=== PATIENT | female | born 1990 | race Two or more races ===

== ENCOUNTER 2020-09-07 18:56 | Emergency (ER) | payer SELFPAY ==
[~2020-09-07] VITALS: Ht 149.9 cm; Wt 95.4 kg
[2020-09-07] MEDS ORDERED: CETIRIZINE HCL 10 MG TABLET PO ONE (20:25)
[2020-09-07] MEDS ORDERED: FLUT9.9S NS (20:26)
[2020-09-07] MEDS ORDERED: CETI10TA74 PO (20:26)
--- NOTE | 2020-09-07 20:26 | PHYS DOC ---
Past History Past Medical History: Asthma Additional Past Medical Histor: pre-diabetes Past Surgical History: No Surgical History Alcohol Use: None Adult General Chief Complaint Chief Complaint: EARACHE/EAR PAIN HPI HPI Patient is a 30-year-old female who presents with URI-like symptoms. Onset was noted first thing this morning. Nothing known makes better or worse. Patient reports classic symptoms of generalized headache, bilateral ear fullness, sinus pressure, rhinorrhea, postnasal drip and nonproductive cough. Patient denies being around any known sick contacts, no recent travel, no COVID-19 exposure, no fever. She is not immunocompromised Review of Systems Review of Systems Fourteen body systems of review of systems have been reviewed. See HPI for pertinent positives and negative responses, other duval all other systems are negative, non-pertinent or non-contributory Allergies Allergies Allergies Coded Allergies Type Severity Reaction Last Updated Verified Penicillins Allergy Severe anaphylactic 09/07/20 Yes ciprofloxacin Allergy Intermediate myalgias, liver labs elevated 09/07/20 Yes Physical Exam Physical Exam Constitutional: Well developed, well nourished, no acute distress, non-toxic appearance. HENT: Normocephalic, atraumatic, bilateral external ears normal, oropharynx moist, no oral exudates, moderate postnasal drip present, moderately engorged nasal turbinates with clear rhinorrhea present, external nose normal. Eyes: PERRLA, EOMI, conjunctiva normal, no discharge. Neck: Normal range of motion, no tenderness, supple, no stridor. Cardiovascular: Heart rate regular, sinus rhythm, no murmurs rubs or gallops Lungs & Thorax: Bilateral breath sounds clear to auscultation Abdomen: Bowel sounds normal, soft, no tenderness, no masses, no pulsatile masses. Nonsurgical abdomen, no peritoneal signs Skin: Warm, dry, no erythema, no rash. Back: No tenderness, no CVA tenderness. Extremities: No tenderness, no cyanosis, no clubbing, ROM intact, no edema. Neurologic: Alert and oriented X 3, grossly normal motor & sensory function, no focal deficits noted. Psychologic: Affect normal, judgement normal, mood normal. Current Patient Data Vital Signs Vital Signs Date Time Temp Pulse Resp B/P (MAP) Pulse Ox O2 Delivery O2 Flow Rate FiO2 09/07/20 19:35 97.8 98 18 130/75 (93) 98 Room Air EKG EKG [] Radiology/Procedures Radiology/Procedures [] Heart Score Risk Factors: Risk Factors: DM, Current or recent (<one month) smoker, HTN, HLP, family history of CAD, obesity. Risk Scores: Risk Factors: DM, Current or recent (<one month) smoker, HTN, HLP, family history of CAD, obesity. Course & Med Decision Making Course & Med Decision Making Nontoxic ambulatory patient seen on arrival ABCs nonconcerning Comprehensive history and physical exam obtained, no obvious emergent and/or surgical findings Discussed most likely diagnosis of viral syndrome, I offered patient COVID-19 swab but she refused I educated patient on likely self-limiting disease course and supportive care measures to practice Patient has PCP in local area, she reports she will be able to follow-up within upcoming 3 to 10 days for reevaluation, I feel this is appropriate Strict return precautions were discussed with good understanding by patient, all questions and concerns addressed prior to ER departure in stable condition Dragon Disclaimer Dragon Disclaimer This electronic medical record was generated, in whole or in part, using a voice recognition dictation system. Departure Departure: Impression: Primary Impression: Viral syndrome Disposition: 01 DC HOME SELF CARE/HOMELESS Condition: STABLE Referrals: JUSTUS GUERRERO MD (PCP) Patient Instructions: Viral Syndrome Additional Instructions: As discussed prior to ER departure, please call your primary care physician first thing in the morning to schedule outpatient follow-up in upcoming 1 to 10 days time You are educated on concerning signs or symptoms that should prompt immediate medical attention if they occur prior to seeing your outpatient physician. It was a pleasure to take care of you and I wish you a speedy recovery! Scripts Fluticasone Propionate (Flonase Allergy Relief) 9.9 Ml [place].susp 2 SPRAYS NS DAILY for rhinitis for 30 Days, #1 BOTTLE Prov: GLORIA ARMAS DO 09/07/20 Cetirizine Hcl (ZYRTEC) 10 Mg Tablet 1 TAB PO DAILY for rhinitis, #30 TAB 2 Refills Prov: GLORIA ARMAS DO 09/07/20 GLORIA ARMAS DO Sep 07, 2020 20:26
[2020-09-07 20:35] VITALS: BP 107/68
== END 2020-09-07 20:38 | disposition home or self-care (01) ==
LOC: EDBD 18:56 → ER 18:56
DX: B34.9 Viral infection, unspecified (principal); J45.909 Unspecified asthma, uncomplicated; Z88.0 Allergy status to penicillin; Z88.1 Allergy status to other antibiotic agents
CPT/HCPCS: 99283

== ENCOUNTER 2020-11-18 16:50 | Emergency (ER) | payer SELFPAY ==
[~2020-11-18] VITALS: Ht 149.9 cm; Wt 94.5 kg
[~2020-11-18 16:50] MED LIST: CETI10TA74 PO; FLUT9.9S NS
[2020-11-18] MEDS ORDERED: IPRATRPIUM/ALBUTEROL 0.5/2.5MG 3 ML NEBU. NEB ONE ×2 (17:15)
[2020-11-18] MEDS ORDERED: IV NORMAL SALINE 1,000ML 1,000 ML IV ONE (17:15)
[2020-11-18] MEDS ORDERED: methylPREDNISolone SOD SUCC PF 125 MG/2 ML VIAL. IV ONE (17:15)
[2020-11-18] MEDS ORDERED: ALBUTEROL SULFATE 2.5 MG/3 ML NEBU. CONT NEB ONE (17:30)
--- NOTE | 2020-11-18 17:31 | RAD ---
EXAM: CHEST 1 VIEW History: Cough COMPARISON: None available. TECHNIQUE: Single portable radiograph of the chest FINDINGS: The cardiac silhouette is unremarkable. The lungs are clear bilaterally. The costophrenic sulci are clear and well demarcated. IMPRESSION: No radiographic evidence of an acute cardiopulmonary process. Electronically signed by: Dimitrios Guzman MD (11/18/2020 5:28 PM) [id number]
--- NOTE | 2020-11-18 17:33 | PHYS DOC ---
Past History Past Medical History: Asthma (ANGELY NAGY MD) Past Surgical History: No Surgical History (ANGELY NAGY MD) Alcohol Use: None (ANGELY NAGY MD) General Adult EDM: Chief Complaint: ASTHMA HPI: HPI: Patient is a 30-year-old female with history of asthma coming in for asthma exacerbation. States symptoms started about a week ago that she thinks were triggered by the cold and gradually getting worse. Is having uncontrollable cough. Has been using her albuterol inhaler every 4 hours and Symbicort twice a day. Patient says she has not had a fever. The cough is nonproductive. Patient had otherwise been well not had any fevers, vomiting, diarrhea, headaches. (ANGELY NAGY MD) Review of Systems: Review of Systems: All other systems within normal limits except for as noted in the HPI (ANGELY NAGY MD) Current Medications: Current Meds: Current Medications Medications (Trade) Dose Ordered Sig/Ajne Start Time Stop Time Status Last Admin Dose Admin Albuterol Sulfate (Ventolin) 10 mg 1X ONCE 11/18/20 17:30 11/18/20 17:31 11/18/20 17:28 10 MG Albuterol/ Ipratropium (Duoneb) 3 ml 1X ONCE 11/18/20 17:15 11/18/20 17:16 DC 11/18/20 17:28 3 ML Methylprednisolone Sodium Succinate (SOLU-Medrol 125MG VIAL) 125 mg 1X ONCE 11/18/20 17:15 11/18/20 17:16 DC Sodium Chloride 1,000 ml @ 1,000 mls/hr 1X ONCE 11/18/20 17:15 11/18/20 18:14 (ANGELY NAGY MD) Allergies: Allergies: Allergies Coded Allergies Type Severity Reaction Last Updated Verified Penicillins Allergy Unknown 11/18/20 Yes ciprofloxacin Allergy Unknown 11/18/20 Yes milk Allergy Unknown 11/18/20 Yes nut - unspecified Allergy Unknown 11/18/20 Yes (ANGELY NAGY MD) Physical Exam: PE: Constitutional: Well developed, well nourished, no acute distress, non-toxic appearance. [] HENT: Normocephalic, atraumatic, bilateral external ears normal, nose normal. [] Eyes: PERRLA, conjunctiva normal, no discharge. [] Neck: No rigidity, supple, no stridor. [] Cardiovascular: Regular rhythm, tachycardic, brisk cap refill [] Lungs & Thorax: Non labored symmetric respirations, tachypneic with diminished breath sounds bilateral, no wheezes [] Abdomen: Soft, nondistended. Skin: Warm, dry, no erythema, no rash. [] Back: No tenderness, no CVA tenderness. [] Extremities: No deformities, range of motion grossly intact, no lower extremity edema [] Neurologic: Alert and oriented X 3, no focal deficits noted. [] Psychologic: Affect normal, judgement normal, mood normal. [] (ANGELY NAGY MD) Current Patient Data: Vital Signs: Vital Signs Date Time Temp Pulse Resp B/P (MAP) Pulse Ox O2 Delivery O2 Flow Rate FiO2 11/18/20 17:14 99.8 118 24 124/84 (97) 98 Room Air (ANGELY NAGY MD) EKG: EKG: [] (ANGELY NAGY MD) Radiology/Procedures: Radiology/Procedures: EXAM: CHEST 1 VIEW History: Cough COMPARISON: None available. TECHNIQUE: Single portable radiograph of the chest FINDINGS: The cardiac silhouette is unremarkable. The lungs are clear bilaterally. The costophrenic sulci are clear and well demarcated. IMPRESSION: No radiographic evidence of an acute cardiopulmonary process. [] (ANGELY NAGY MD) Heart Score: Risk Factors: Risk Factors: DM, Current or recent (<one month) smoker, HTN, HLP, family history of CAD, obesity. Risk Scores: Score 0 - 3: 2.5% MACE over next 6 weeks - Discharge Home Score 4 - 6: 20.3% MACE over next 6 weeks - Admit for Clinical Observation Score 7 - 10: 72.7% MACE over next 6 weeks - Early Invasive Strategies (ANGELY NAGY MD) Course & Med Decision Making: Course & Med Decision Making No signs of pneumonia, patient getting hour-long nebulizer at time of shift change. Care transition to Dr. De Anda. [] (ANGELY NAGY MD) Course & Med Decision Making I assumed care of patient after comprehensive signout obtained from off going physician, I reviewed entirety of ER work-up so far I reevaluated patient after her hour-long breathing treatment, patient reports feeling "much better, I am ready to go home" I repeated certain aspects of history and physical exam, she is on appropriate maintenance inhaler therapy and has been taking increased frequency of rescue inhaler recently. Has history of exacerbations like this that have been due to cold weather fronts States she has never been intubated in the past, typically responds to therapy administered today in our ER in addition to short-term steroid burst. I offered this to her and she agreed Patient has good access to primary care physician and states she can be seen with an upcoming 5 days which I feel is appropriate. Strict return precautions were discussed with good understanding, all questions and concerns addressed prior to ER departure and improved condition (GLORIA DE ANDA DO) Dragon Disclaimer: Dragon Disclaimer: This electronic medical record was generated, in whole or in part, using a voice recognition dictation system. (ANGELY NAGY MD) Departure Departure: Impression: Primary Impression: Asthma exacerbation Disposition: DC HOME SELF CARE/HOMELESS Condition: IMPROVED Referrals: PCP,NO (PCP) Patient Instructions: Asthma Attacks, Prevention Additional Instructions: You were seen for an asthma exacerbation. Your exacerbation was likely caused by a recent cold front and weather. You should be checking your peak flows daily and taking all of your controller and rescue inhalers as previously prescribed. Any new medications today, please take those as prescribed as well. It may take a few days for the steroids to begin to work, but use albuterol as needed for the next few days to help with symptoms. As discussed, I would call your primary care physician next business day to schedule outpatient follow-up. Given your symptoms, I advise you be seen with an upcoming 1-5 days for repeat evaluation and discussion about need for further maintenance inhaler therapy. Return to the ED if you develop worsening cough, shortness of breath, fever > 101, chest pain, or any other new or concerning symptoms. You need to follow up with your primary care doctor as soon as possible as a severe asthma exacerbation can be fatal. It was a pleasure to take care of you and I wish you the best going forward Scripts Prednisone (PREDNISONE) 20 Mg Tablet 40 MG PO DAILY for ASTHMA for 5 Days, #10 TAB Prov: GLORIA DE ANDA DO 11/18/20 ANGLEY NAGY MD Nov 18, 2020 17:33 GLORIA DE ANDA DO Nov 18, 2020 19:03
[2020-11-18] MEDS ORDERED: PRED20TA PO (19:03)
[2020-11-18 19:45] VITALS: BP 135/70
== END 2020-11-18 20:00 | disposition home or self-care (01) ==
LOC: ER 16:50 → MERGE 16:50 → ER 20:00
DX: J45.901 Unspecified asthma with (acute) exacerbation (principal); Z88.0 Allergy status to penicillin; Z88.1 Allergy status to other antibiotic agents; Z91.011 Allergy to milk products; Z91.018 Allergy to other foods
CPT/HCPCS: 71045; 94644; 96361; 96374; 99285; J2930; J7030; J7613; 94640

== ENCOUNTER 2020-11-19 23:17 | Inpatient (IN) | payer SELFPAY ==
[~2020-11-19] VITALS: Ht 149.9 cm; Wt 92.7 kg
[~2020-11-19 23:17] MED LIST changes: +PRED20TA PO
[2020-11-19] MEDS ORDERED: MAGNESIUM SULFATE 2GM 50 ML IV ONE (23:39)
--- NOTE | 2020-11-19 23:40 | PHYS DOC ---
Past History Past Medical History: Asthma Additional Past Medical Histor: pre-diabetes Past Surgical History: No Surgical History Alcohol Use: None Adult General HPI HPI Patient is a 30-year-old female who presents for shortness of breath. Patient was seen and evaluated at our ER yesterday, has known history of asthma with numerous exacerbations requiring hospitalizations, last of which was 3 years ago. She has never been intubated. She was evaluated fully yesterday, improved with ER intervention and had unremarkable chest x-ray. Patient reported significant symptomatic improvement after ER intervention and voiced she wanted to go home with close outpatient follow-up. Nonetheless, patient states that she was able to take her daily maintenance inhaler and prescribed steroid burst but reported worsening symptoms later in the evening. States she has had increased shortness of breath and feelings of bronchospasm likely due to the cold air which exacerbates her condition. Has not checked her temperature at home, no headache, no neck stiffness or rigidity, patient has ongoing dry nonproductive cough, patient reports taking a deep breath and triggers coughing fit, no abdominal pain, increased urination past baseline without any dysuria, no motor or sensory function changes. She has no known COVID-19 contact, no hemoptysis, no prior blood clots, no hormone use, no long distance travel. Review of Systems Review of Systems Fourteen body systems of review of systems have been reviewed. See HPI for pertinent positives and negative responses, other duval all other systems are negative, non-pertinent or non-contributory Current Medications Current Medications Current Medications Medications (Trade) Dose Ordered Sig/Jane Start Time Stop Time Status Last Admin Dose Admin Acetaminophen (Tylenol) 650 mg 1X ONCE 11/20/20 01:00 11/20/20 01:01 DC Albuterol/ Ipratropium (Duoneb) 3 ml STK-MED ONCE 11/19/20 23:47 11/19/20 23:47 DC Magnesium Sulfate 50 ml @ 25 mls/hr 1X ONCE 11/20/20 00:00 11/20/20 01:59 11/20/20 00:07 Methylprednisolone Sodium Succinate (SOLU-Medrol 40MG VIAL) 40 mg 1X ONCE 11/20/20 00:00 11/20/20 00:01 DC 11/20/20 00:07 Sodium Chloride 1,000 ml @ 1,000 mls/hr 1X ONCE 11/20/20 00:00 11/20/20 00:59 DC 11/20/20 00:07 Allergies Allergies Allergies Coded Allergies Type Severity Reaction Last Updated Verified Penicillins Allergy Severe anaphylactic 09/07/20 Yes ciprofloxacin Allergy Intermediate myalgias, liver labs elevated 09/07/20 Yes Physical Exam Physical Exam Constitutional: Well developed, well nourished, ambulatory and saturating well but displaying signs of increased work of breathing and bronchospasm HENT: Normocephalic, atraumatic, bilateral external ears normal, oropharynx dry without postnasal drip, no oral exudates, nose normal. Eyes: PERRLA, EOMI, conjunctiva normal, no discharge. Neck: Normal range of motion, no tenderness, supple, no stridor. Cardiovascular: Heart rate tachycardic, sinus rhythm, no murmurs rubs or gallops Lungs & Thorax: Diminished breath sounds globally without any audible wheezes, rhonchi or rails, patient moving air poorly, respiratory distress present with increased work of breathing and accessory muscle use of neck and abdomen Abdomen: Bowel sounds normal, protuberant and soft, no tenderness, no masses, no pulsatile masses. Nonsurgical abdomen, no peritoneal signs Skin: Warm, dry, no erythema, no rash. Back: No tenderness, no CVA tenderness. Extremities: No tenderness, no cyanosis, no clubbing, ROM intact, no edema. Neurologic: Alert and oriented X 3, grossly normal motor & sensory function, no focal deficits noted. Psychologic: Anxious affect, judgement normal, anxious mood Current Patient Data Vital Signs Vital Signs Date Time Temp Pulse Resp B/P (MAP) Pulse Ox O2 Delivery O2 Flow Rate FiO2 11/19/20 23:55 98 Room Air 11/19/20 23:25 101.8 134 28 115/82 (93) 97 Room Air Lab Results Laboratory Tests Test 11/19/20 23:40 11/19/20 23:45 Influenza Type A (Rapid) Negative Influenza Type B (Rapid) Negative White Blood Count 7.5 x10^3/uL Red Blood Count 4.64 x10^6/uL Hemoglobin 14.2 g/dL Hematocrit 41.6 % Mean Corpuscular Volume 90 fL Mean Corpuscular Hemoglobin 31 pg Mean Corpuscular Hemoglobin Concent 34 g/dL Red Cell Distribution Width 12.8 % Platelet Count 224 x10^3/uL Neutrophils (%) (Auto) 76 % Lymphocytes (%) (Auto) 19 % Monocytes (%) (Auto) 5 % Eosinophils (%) (Auto) 0 % Basophils (%) (Auto) 0 % Neutrophils # (Auto) 5.7 x10^3uL Lymphocytes # (Auto) 1.4 x10^3/uL Monocytes # (Auto) 0.4 x10^3/uL Eosinophils # (Auto) 0.0 x10^3/uL Basophils # (Auto) 0.0 x10^3/uL Sodium Level 136 mmol/L Potassium Level 3.5 mmol/L Chloride Level 101 mmol/L Carbon Dioxide Level 25 mmol/L Anion Gap 10 Blood Urea Nitrogen 14 mg/dL Creatinine 1.0 mg/dL Estimated GFR (Cockcroft-Gault) 65.1 BUN/Creatinine Ratio 14 Glucose Level 98 mg/dL Lactic Acid Level 2.2 mmol/L Calcium Level 8.7 mg/dL Total Bilirubin 0.2 mg/dL Aspartate Amino Transf (AST/SGOT) 22 U/L Alanine Aminotransferase (ALT/SGPT) 33 U/L Alkaline Phosphatase 112 U/L Total Protein 8.0 g/dL Albumin 3.9 g/dL Albumin/Globulin Ratio 1.0 Current Medications Medications (Trade) Dose Ordered Sig/Jane Route PRN Reason Start Time Stop Time Status Last Admin Dose Admin Sodium Chloride 1,000 ml @ 1,000 mls/hr 1X ONCE IV 11/20/20 00:00 11/20/20 00:59 DC 11/20/20 00:07 Magnesium Sulfate 50 ml @ As Directed STK-MED ONCE IV 11/19/20 23:39 11/19/20 23:39 DC Albuterol/ Ipratropium (Duoneb) 3 ml 1X ONCE NEB 11/20/20 00:00 11/20/20 00:01 DC 11/20/20 00:00 Methylprednisolone Sodium Succinate (SOLU-Medrol 40MG VIAL) 40 mg 1X ONCE IV 11/20/20 00:00 11/20/20 00:01 DC 11/20/20 00:07 Magnesium Sulfate 50 ml @ 25 mls/hr 1X ONCE IV 11/20/20 00:00 11/20/20 01:59 11/20/20 00:07 Albuterol/ Ipratropium (Duoneb) 3 ml STK-MED ONCE .ROUTE 11/19/20 23:47 11/19/20 23:47 DC Acetaminophen (Tylenol) 650 mg 1X ONCE PO 11/20/20 01:00 11/20/20 01:01 DC EKG EKG EKG ordered and interpreted by myself at 0108 hours as sinus rhythm at 132 bpm, unremarkable intervals except prolonged QTC at 507, no axis deviation, no acute ischemic findings, no STEMI Radiology/Procedures Radiology/Procedures XR CHEST 1V 11/19/2020 11:46 PM INDICATION: Shortness of breath COMPARISON: None available TECHNIQUE: Portable frontal view of the chest is provided. FINDINGS: The cardiomediastinal silhouette is within normal limits. Lungs are clear. There are no significant pleural effusions. There is no pulmonary vascular congestion. No pneumothorax. No suspicious osseous abnormality. IMPRESSION: There is no acute cardiopulmonary process. Electronically signed by: Windy Santillan MD (11/20/2020 12:13 AM) [facility] Heart Score HEART Score for Chest Pain: HEART Score for Chest Pain Response (Comments) Value History Slighlty/Non-Suspicious 0 ECG Normal 0 Age < 45 0 Risk Factors No Risk Factors 0 Total 0 Risk Factors: Risk Factors: DM, Current or recent (<one month) smoker, HTN, HLP, family history of CAD, obesity. Risk Scores: Risk Factors: DM, Current or recent (<one month) smoker, HTN, HLP, family history of CAD, obesity. Course & Med Decision Making Course & Med Decision Making Pertinent Labs and Imaging studies reviewed. (See chart for details) Patient is febrile, tachycardic and tachypneic but otherwise hemodynamically stable. She reports having higher than normal resting heart rate but has had increased heart rate due to every 4 hour albuterol inhaler treatments at home ER intervention shows no obvious emergent and/or surgical pathology; however, patient still symptomatic suffering from bronchospasm and not significantly improved with ER intervention provided. She has failed outpatient treatment of her likely asthma exacerbation/bronchospasm Joint decision was made to admit for continued medical management. Given that she is febrile and short of breath with nonproductive cough, decision was made to swab for Covid despite no known COVID-19 contact. She is currently a PUI I contacted hospitalist and case was reviewed, he agreed for admission under his care at [facility] I updated patient on proposed plan of care who is amenable for admission. All questions and concerns addressed prior to transport to [facility] for admission Of note, it is my opinion that the patient DOES NOT have a likely bacterial etiology for meeting Sepsis Criteria. Defer IV antimicrobials per Sepsis Best Practice Statements given more likely etiology for presentation and findings consistent with sepsis markers. Critical Care Time This patient required critical care. Due to the fact that the patient required a significant amount of one on one physician - patient contact time, ordering and review of studies, arranging urgent treatment with development of a management plan, evaluation of patients response to treatment with frequent reassessments, and discussions with other providers this patient required critical care time in excess of 30 minutes. Critical care time was indicated due to the inherent instability and/or potential for instability in this patient. The critical care time that is allocated to this patient is above and beyond any time spent on any other billable procedures performed on this patient. Dragon Disclaimer Dragon Disclaimer This electronic medical record was generated, in whole or in part, using a voice recognition dictation system. Departure Departure: Impression: Primary Impression: Asthma exacerbation Additional Impressions: Fever Person under investigation for COVID-19 Disposition: 09 ADMITTED INPT THIS HOSP Admitting Physician: Brian Avalos Condition: STABLE Referrals: JUSTUS GUERRERO MD (PCP) Problem Qualifiers GLORIA ARMAS DO Nov 19, 2020 23:39
[2020-11-19] MEDS ORDERED: IPRATRPIUM/ALBUTEROL 0.5/2.5MG 3 ML NEBU. ONE (23:47)
[2020-11-20] MEDS ORDERED: methylPREDNISolone SOD SUCC PF 40 MG/ML VIAL. IV ONE
[2020-11-20] MEDS ORDERED: IPRATRPIUM/ALBUTEROL 0.5/2.5MG 3 ML NEBU. NEB ONE
[2020-11-20] MEDS ORDERED: IV NORMAL SALINE 1,000ML 1,000 ML IV ONE
[2020-11-20] MEDS ORDERED: MAGNESIUM SULFATE 2GM 50 ML IV ONE
--- NOTE | 2020-11-20 00:15 | RAD ---
XR CHEST 1V 11/19/2020 11:46 PM INDICATION: Shortness of breath COMPARISON: None available TECHNIQUE: Portable frontal view of the chest is provided. FINDINGS: The cardiomediastinal silhouette is within normal limits. Lungs are clear. There are no significant pleural effusions. There is no pulmonary vascular congestion. No pneumothora x. No suspicious osseous abnormality. IMPRESSION: There is no acute cardiopulmonary process. Electronically signed by: Windy Santillan MD (11/20/2020 12:13 AM) [facility]
[2020-11-20 00:36] LABS: BASO % 0 % (0-3); EOS % 0 % (0-3); HEMATOCRIT 41.6 % (36.0-47.0); HEMOGLOBIN 14.2 g/dL (12.0-15.5); LYMPH # 1.4 x10^3/uL (1.0-4.8); LYMPH % 19 % (24-48); MEAN CORPUSCULAR HEMOGLOBIN 31 pg (25-35); MEAN CORPUSCULAR HGB CONC 34 g/dL (31-37); MEAN CORPUSCULAR VOLUME 90 fL (79-100); MONO # 0.4 x10^3/uL (0.0-1.1); MONO % 5 % (0-9); NEUT # 5.7 x10^3uL (1.8-7.7); NEUT % 76 % (31-73); PLATELET COUNT 224 x10^3/uL (140-400); RED BLOOD COUNT 4.64 x10^6/uL (3.50-5.40); RED CELL DISTRIBUTION WIDTH 12.8 % (11.5-14.5); WHITE BLOOD COUNT 7.5 x10^3/uL (4.0-11.0)
[2020-11-20 00:43] LABS: CALCIUM 8.7 mg/dL (8.5-10.1); GFR 65.1; POTASSIUM 3.5 mmol/L (3.5-5.1)
[2020-11-20 01:00] LABS: ALBUMIN 3.9 g/dL (3.4-5.0); TOTAL BILIRUBIN 0.2 mg/dL (0.2-1.0)
[2020-11-20] MEDS ORDERED: ACETAMINOPHEN 325 MG TABLET PO ONE (01:00)
[2020-11-20 01:01] LABS: INFLUENZA A PATIENT NEGATIVE (NEGATIVE); INFLUENZA B PATIENT NEGATIVE (NEGATIVE)
[2020-11-20] MEDS ORDERED: ACETAMINOPHEN 325 MG TABLET PO PRN (01:15)
[2020-11-20] MEDS ORDERED: ONDANSETRON PF 4 MG/2 ML VIAL. IVP PRN (01:15)
--- NOTE | 2020-11-20 02:30 | NUR ---
The patient, CL CHRISTIE, 30 y/o, F admitted by KARMA HOYT MD, to room 122, was given written information regarding hospital policies, unit procedures and contact persons. Valuables were checked and left with the patient. Medical needs were assessed. Medical history and medications reviewed. Pt placed on telemetry and changed into telemetry gown. Oriented patient to room. Will continue to monitor.
[2020-11-20 02:42] VITALS: BP 112/72
--- NOTE | 2020-11-20 04:32 | EKG ---
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
[2020-11-20] MEDS ORDERED: BUDE10.22 IH (04:36)
[2020-11-20] MEDS ORDERED: METF500T16 PO (04:36)
[2020-11-20] MEDS ORDERED: ALBU2.5V8 IH (04:36)
[2020-11-20 05:54] VITALS: BP 95/57
[2020-11-20] MEDS ORDERED: BENZOCAINE/MENTHOL LOZNGE 18'S BOX. PO PRN (09:15)
[2020-11-20 11:28] VITALS: BP 127/65
[2020-11-20] MEDS ORDERED: ALBUTEROL SULFATE 2.5 MG/3 ML NEBU. NEB PRN (13:45)
[2020-11-20] MEDS ORDERED: DEXTROSE 50% 25 GM / 50ML DISP.SYRIN. IV PRN (14:00)
--- NOTE | 2020-11-20 14:11 | HP ---
ADMIT DATE: 11/20/2020 HISTORY OF PRESENT ILLNESS: The patient is a 30-year-old female patient who presented to the Emergency Room with complaint of shortness of breath. She apparently was seen in the Emergency Room yesterday as she is known to have history of bronchial asthma with numerous exacerbations requiring hospitalization, last of which was about 3 years ago. She has never been intubated. She was evaluated fully yesterday and improved with ER intervention, had unremarkable chest x-ray. The patient reported significant symptomatic improvement after ER intervention and voiced her wishes to go home with close outpatient followup. Nonetheless, the patient states that she was able to take her daily maintenance inhaler and prescribed steroids first, but reported worsening of her symptoms later in the evening. She stated that she has increasing shortness of breath and feeling of bronchospasm, likely due to cold air, which exacerbates her condition, has not checked her temperature at home, but denied any headache. No neck stiffness. No rigidity. The patient has an ongoing dry, nonproductive cough. She stated that taking a deep breath triggers coughing fits and now she has also complained of chest pain, but denied any urinary symptoms. Denied any other complaint. She has no known COVID-19 contact. No hemoptysis. No prior blood clots. No hormone use. No long distance travel. She was again evaluated in the Emergency Room and has had lab work that was all unremarkable. Her chemistry was also unremarkable. Her lactic acid was slightly elevated at 2.2, which is also metformin. Urine test was negative and her influenza A and B are both negative. She was in fact swabbed for coronavirus, the result of which is still pending. Chest x-ray showed the cardiomediastinal silhouette is within normal limits. Lungs are clear. There is no significant pleural effusion. There is no pulmonary vascular congestion, no pneumothorax, no suspicious osseous abnormalities and the patient was admitted with acute asthma exacerbation. She was swabbed for possible COVID infection. PAST MEDICAL HISTORY: Significant for bronchial asthma and type 2 diabetes mellitus, which she is on Glucophage. PAST SURGICAL HISTORY: Unremarkable. ALLERGIES: SHE IS ALLERGIC TO PENICILLIN AND CIPROFLOXACIN. MEDICATIONS: She is currently on following medications: She is on Zyrtec 10 mg once a day, albuterol sulfate for ProAir 2 puffs every 4-6 hours. She is on Symbicort 80/4.5 mcg inhaler 2 puffs twice a day. She is on Flonase 2 sprays to each nostril once a day and metformin 500 mg twice a day. FAMILY HISTORY: Has 1 younger brother who has severe gastroesophageal reflux disease. Her mother is alive at age of 55 and seemingly healthy. Father is alive at the age of 63 and has hyperlipidemia. SOCIAL HISTORY: She is , has 1 son. She does not smoke, drink alcohol or use recreational drugs. She is a [id number] mom taking care of her son and her disabled . PHYSICAL EXAMINATION: VITAL SIGNS: On arrival to the Emergency Room this morning, her heart rate was 123, blood pressure was 109/67, temperature was 98.3, respiratory rate 24 and oxygen saturation was 98% on room air. HEAD, EYES, EARS, NOSE AND THROAT: Showed normocephalic, atraumatic. NECK: Supple. HEART: Normal first and second heart sounds. No gallop or murmur. CHEST: Showed central trachea, reduced chest expansion, reduced air entry, vesicular breath sounds. I could not really appreciate any crepitation or rhonchi. ABDOMEN: Distended, soft, nontender. No guarding or rigidity. No organomegaly. All hernial orifices intact. Bowel sounds normal. NEUROLOGIC: She was alert, oriented x 3 with no obvious motor or sensory deficit. EXTREMITIES: Showed no clubbing, cyanosis or edema. PSYCHOLOGICAL: She is anxious, but with normal judgment. DIAGNOSTIC AND LABORATORY DATA: While in the Emergency Room, she has had lab work, imaging studies and EKG. Her EKG showed that she was in sinus rhythm at a heart rate of 132 beats per minute, unremarkable interval except prolonged QTC interval at 507, no axis deviation and no acute ischemic changes or ST-segment elevation. Her chest x-ray showed the cardiomediastinal silhouette is within normal limits. Lungs are clear. There is no significant pleural effusion. There is no pulmonary vascular congestion or pneumothorax. Her white cell count was 7.5, hemoglobin 14, hematocrit 42, MCV 90 and platelet count 224,000 with normal manual differential. Her serum sodium was 136, potassium 3.5, chloride 101, bicarbonate 25, anion gap of 10, BUN 14, creatinine 1, estimated GFR was 65 mL per minute. Her glucose was 98, calcium was 8.7. Total bilirubin, AST, ALT, alkaline phosphatase were normal. Total protein 8, albumin was 3.9. Her urine test was negative. Her influenza A and B were negative. ASSESSMENT AND PLAN: The patient was admitted with acute asthma exacerbation. She is admitted as a person under investigation for COVID-19 as well as type 2 diabetes. She was treated with IV steroids as well as normal saline and magnesium sulfate, was admitted for further evaluation and treatment. KARMA HOYT MD DR: ANJEL/clint JOB#: [id number] / [id number]
[2020-11-20] MEDS: methylPREDNISolone SOD SUCC PF 40 MG/ML VIAL. IV SCH ×2 (14:25→21:34)
[2020-11-20] MEDS ORDERED: ALBUTEROL SULFATE 2.5 MG/3 ML NEBU. CONT NEB ONE (14:45)
[2020-11-20] MEDS: IPRATRPIUM/ALBUTEROL 0.5/2.5MG 3 ML NEBU. NEB SCH ×2 (14:51→21:13)
[2020-11-20] MEDS: INSULIN LISPRO 300 UNITS/3 ML VIAL. SQ SCH (17:00)
[2020-11-20 17:07] VITALS: BP 114/74
[2020-11-20] MEDS ORDERED: CALCIUM CARBONATE 500 MG TAB.CHEW PO PRN (18:45)
[2020-11-20] MEDS: MONTELUKAST 10 MG TABLET. PO SCH (21:13)
[2020-11-20] MEDS: BUDESONIDE 0.5 MG/2 ML NEBU NEB SCH (21:13)
[2020-11-20] MEDS: DOXYCYCLINE HYCLATE 100 MG TABLET PO SCH (21:13)
[2020-11-20] MEDS: HYDROcodone/APAP 5/325MG 1 TAB TABLET PO PRN (21:34)
[2020-11-20 23:10] VITALS: BP 127/79
[2020-11-21] MEDS: methylPREDNISolone SOD SUCC PF 40 MG/ML VIAL. IV SCH ×3 (05:51→21:50)
[2020-11-21 06:18] VITALS: BP 127/62
[2020-11-21] MEDS: HYDROcodone/APAP 5/325MG 1 TAB TABLET PO PRN ×3 (06:44→19:41)
[2020-11-21 07:19] LABS: HEMATOCRIT 43.8 % (36.0-47.0); HEMOGLOBIN 14.5 g/dL (12.0-15.5); RED BLOOD COUNT 4.89 x10^6/uL (3.50-5.40); RED CELL DISTRIBUTION WIDTH 12.9 % (11.5-14.5); WHITE BLOOD COUNT 8.4 x10^3/uL (4.0-11.0)
[2020-11-21 07:31] LABS: ALBUMIN 3.7 g/dL (3.4-5.0); ALBUMIN/GLOBULIN RATIO 0.9 (1.0-1.7); CALCIUM 8.2 mg/dL (8.5-10.1); CREATININE 0.9 mg/dL (0.6-1.0); GFR 73.5; POTASSIUM 3.9 mmol/L (3.5-5.1); TOTAL BILIRUBIN 0.2 mg/dL (0.2-1.0); TOTAL PROTEIN 7.9 g/dL (6.4-8.2)
[2020-11-21] MEDS: INSULIN LISPRO 300 UNITS/3 ML VIAL. SQ SCH ×3 (07:39→16:34)
[2020-11-21] MEDS: IPRATRPIUM/ALBUTEROL 0.5/2.5MG 3 ML NEBU. NEB SCH (08:00)
[2020-11-21] MEDS: LACTOBACILLUS RHAMNOSUS GG 1 CAPSULE. PO SCH ×2 (08:19→19:42)
[2020-11-21] MEDS: ONDANSETRON PF 4 MG/2 ML VIAL. IVP PRN (08:19)
[2020-11-21] MEDS: PANTOPRAZOLE 40 MG TABLET. PO SCH (08:19)
[2020-11-21] MEDS: DOXYCYCLINE HYCLATE 100 MG TABLET PO SCH ×2 (08:20→19:42)
[2020-11-21] MEDS ORDERED: REMDESIVIR LOAD in IV NORMAL SALINE 250ML TV IV ONE (09:00)
[2020-11-21 11:41] VITALS: BP 116/74
[2020-11-21] MEDS: BUDESONIDE 0.5 MG/2 ML NEBU NEB SCH ×2 (11:56→19:41)
[2020-11-21] MEDS: IPRATROPIUM/ALBUTEROL 20/100mcg/INH INHALER. INH SCH ×3 (12:00→19:41)
[2020-11-21] MEDS ORDERED: ENOXAPARIN 40 MG/0.4 ML SYRINGE. SQ SCH (14:00)
[2020-11-21 14:33] VITALS: BP 118/77
--- NOTE | 2020-11-21 17:28 | PN ---
DATE: 11/21/2020 SUBJECTIVE: The patient is sitting slightly propped up in bed, in no apparent distress. She continued to have cough, which is frequent and distressing although mostly dry. Has had no fever since admission. Does have some chest pain and chest discomfort because of cough. She continued to maintain her oxygen saturation at 90-95% on room air. OBJECTIVE: GENERAL: When I examined her this afternoon, she looked well and was clearly in no apparent distress. No pallor, jaundice, cyanosis or thyromegaly. No jugular venous distention. No lower limb edema. VITAL SIGNS: Her heart rate was 109, blood pressure was 116/74, temperature was 99.3, respiratory rate was 24, and oxygen saturation was 95% on room air. HEAD, EYES, EARS, NOSE, AND THROAT: Showed normocephalic and atraumatic. NECK: Supple. HEART: Showed normal first and second heart sounds. No gallop, rub or murmur. CHEST: Clear to auscultation. No crepitation or rhonchi. ABDOMEN: Distended, soft, nontender. NEUROLOGIC: She is awake, alert, responding appropriately. All cranial nerves intact. She moves extremities without difficulty. She ambulates without assistance or assistive devices. Her intake was 1000. No output was recorded. LABORATORY DATA: As of this morning showed a white cell count of 8400, hemoglobin 14.5, hematocrit 43.8, MCV 90 and platelet count of 236,000. Her chemistry showed a serum sodium 139, potassium 3.9, chloride 103, bicarbonate 26, anion gap of 10, BUN 9, creatinine was 0.9, estimated GFR was 73 mL per minute. Her glucose 123, calcium was 8.2. Total bilirubin, AST, ALT, alkaline phosphatase were normal. Total protein 7.9, albumin was 2.7. Urine test was negative. Her influenza A and B were negative; however, her coronavirus by PCR was detectable. ASSESSMENT: 1. COVID-19 pneumonia. 2. Bronchial asthma exacerbation. 3. Type 2 diabetes mellitus. PLAN: To continue with IV antibiotic in the form of doxycycline 100 mg twice a day. Continue with steroids. Continue to monitor blood sugar and adjust insulin as needed. Continue with remdesivir. Continue with nebulized albuterol and Atrovent. KARMA HOYT MD DR: ANJEL/clint JOB#: [id number] / [id number]
[2020-11-21 19:15] VITALS: BP 119/72
[2020-11-21] MEDS: MONTELUKAST 10 MG TABLET. PO SCH (19:42)
[2020-11-21 23:25] VITALS: BP 100/55
[2020-11-22 05:25] VITALS: BP 112/62
[2020-11-22] MEDS: methylPREDNISolone SOD SUCC PF 40 MG/ML VIAL. IV SCH ×3 (06:10→20:24)
[2020-11-22 06:33] LABS: HEMATOCRIT 40.9 % (36.0-47.0); HEMOGLOBIN 13.8 g/dL (12.0-15.5); RED BLOOD COUNT 4.6 x10^6/uL (3.50-5.40); RED CELL DISTRIBUTION WIDTH 12.7 % (11.5-14.5); WHITE BLOOD COUNT 7.1 x10^3/uL (4.0-11.0)
[2020-11-22 06:47] LABS: CALCIUM 8.2 mg/dL (8.5-10.1); CREATININE 0.9 mg/dL (0.6-1.0); GFR 73.5; POTASSIUM 3.7 mmol/L (3.5-5.1)
[2020-11-22] MEDS: IPRATROPIUM/ALBUTEROL 20/100mcg/INH INHALER. INH SCH ×4 (08:00→20:00)
[2020-11-22] MEDS: BUDESONIDE 0.5 MG/2 ML NEBU NEB SCH ×2 (08:00→20:00)
[2020-11-22] MEDS: INSULIN LISPRO 300 UNITS/3 ML VIAL. SQ SCH ×3 (08:00→17:40)
[2020-11-22] MEDS: DOXYCYCLINE HYCLATE 100 MG TABLET PO SCH ×2 (08:56→20:24)
[2020-11-22] MEDS: REMDESIVIR 100mg in NORMAL SALINE 250ML X 4 DAYS IV SCH (08:56)
[2020-11-22] MEDS: PANTOPRAZOLE 40 MG TABLET. PO SCH (08:56)
[2020-11-22] MEDS: LACTOBACILLUS RHAMNOSUS GG 1 CAPSULE. PO SCH ×2 (08:56→20:24)
[2020-11-22 11:02] VITALS: BP 112/59
[2020-11-22] MEDS: ENOXAPARIN 40 MG/0.4 ML SYRINGE. SQ SCH ×2 (12:29→20:25)
[2020-11-22 14:22] VITALS: BP 109/57
[2020-11-22 19:30] VITALS: BP 111/64
--- NOTE | 2020-11-22 19:44 | PN ---
DATE: 11/22/2020 SUBJECTIVE: The patient is resting, slightly propped up in bed, sleeping comfortably, in no apparent distress. She is arousable. On questioning her, she continued to have episodes of hacking distressing cough whenever she sits or attempts to walk. Denied any chest pain, denied any chills, rigors or fever. PHYSICAL EXAMINATION: GENERAL: When I examined her, she looked well and was clearly in no apparent respiratory distress, pale. No pallor, jaundice, cyanosis or thyromegaly. No jugular venous distention. No lower limb edema. VITAL SIGNS: Her heart rate was 89, blood pressure was 109/57, temperature was 99.3, respiratory rate 20, and oxygen saturation was 93%. HEAD, EYES, EARS, NOSE, AND THROAT: Normocephalic, atraumatic. NECK: Supple. HEART: Showed normal first and second heart sounds. No gallop or murmur. CHEST: Showed central trachea, equal bilateral chest expansion, air entry, vesicular sounds. I really could not appreciate any crepitation or rhonchi. ABDOMEN: Distended, soft, nontender. NEUROLOGIC: She is sleepy, but arousable. All cranial nerves intact. She moves extremities without difficulty. Her intake over the last 24 hours was 1400, no output was recorded. LABORATORY DATA: Her lab work this morning showed white cell count of 7100, hemoglobin 13.8, hematocrit 41, MCV 89 and platelet count 224,000. Serum sodium was 136, potassium 3.7, chloride 101, bicarbonate 24, anion gap of 11, BUN 13, creatinine 0.9, estimated GFR was 73.5, glucose was 132, calcium was 8.2. ASSESSMENT: 1. COVID-19 pneumonia. 2. Bronchial asthma exacerbation. 3. Type 2 diabetes mellitus. PLAN: To continue with IV antibiotic in the form of doxycycline 100 mg twice a day. Continue with steroids. Continue with dexamethasone and remdesivir. Continue to monitor her blood sugar and adjust insulin as needed. Continue with nebulized albuterol and Atrovent. KARMA HOYT MD DR: ANJEL/clint JOB#: [id number] / [id number]
[2020-11-22] MEDS: MONTELUKAST 10 MG TABLET. PO SCH (20:24)
[2020-11-22] MEDS: HYDROcodone/APAP 5/325MG 1 TAB TABLET PO PRN (20:24)
[2020-11-22 23:10] VITALS: BP 99/67
[2020-11-23] MEDS: methylPREDNISolone SOD SUCC PF 40 MG/ML VIAL. IV SCH ×3 (05:24→20:14)
[2020-11-23 05:45] VITALS: BP 105/71
[2020-11-23] MEDS: INSULIN LISPRO 300 UNITS/3 ML VIAL. SQ SCH ×3 (08:00→17:31)
[2020-11-23] MEDS: BUDESONIDE 0.5 MG/2 ML NEBU NEB SCH ×2 (08:00→20:00)
[2020-11-23] MEDS: IPRATROPIUM/ALBUTEROL 20/100mcg/INH INHALER. INH SCH ×4 (08:00→20:00)
[2020-11-23] MEDS: LACTOBACILLUS RHAMNOSUS GG 1 CAPSULE. PO SCH ×2 (08:03→20:13)
[2020-11-23] MEDS: ENOXAPARIN 40 MG/0.4 ML SYRINGE. SQ SCH ×2 (08:03→20:13)
[2020-11-23] MEDS: DOXYCYCLINE HYCLATE 100 MG TABLET PO SCH ×2 (08:03→20:13)
[2020-11-23] MEDS: PANTOPRAZOLE 40 MG TABLET. PO SCH (08:03)
[2020-11-23] MEDS: REMDESIVIR 100mg in NORMAL SALINE 250ML X 4 DAYS IV SCH (08:04)
[2020-11-23] MEDS: HYDROcodone/APAP 5/325MG 1 TAB TABLET PO PRN ×2 (08:11→20:13)
[2020-11-23] MEDS: ONDANSETRON PF 4 MG/2 ML VIAL. IVP PRN (09:13)
[2020-11-23 11:02] VITALS: BP 117/64
--- NOTE | 2020-11-23 11:29 | NUR ---
PATIENT IS AWAKE IN A BED THIS AM UPON ASSESSMENT, C/O PAIN AROUND RIB CAGE AND BACK, LORTAB GIVEN ORDERED. PATIENT REQUESTED NURSE LATER AROUND BREAKFAST TIME , STATED SHE FEELS NAUSEATED AND VOMITED ONCE. ZOFRAN GIVEN TO PATIENT ORDERED. WILL CTM.
[2020-11-23 15:00] VITALS: BP 124/69
[2020-11-23 20:00] VITALS: BP 106/60
--- NOTE | 2020-11-23 20:07 | PN ---
DATE: SUBJECTIVE: The patient is resting, slightly propped up in bed, in no apparent respiratory distress. She seemed to be somewhat better today, although she continued to have episodes of distressing cough, which is mostly dry. Denied any chills, rigors, or fever. PHYSICAL EXAMINATION: GENERAL: When I examined her, she looked well and was clearly in no apparent respiratory distress. No pallor, jaundice, cyanosis, or thyromegaly. No jugular venous distention. No limb edema. VITAL SIGNS: Her heart rate was 76, blood pressure was 124/69, temperature was 98.6, respiratory rate was 18, and oxygen saturation was 94%. HEAD, EYES, EARS, NOSE, AND THROAT: Normocephalic, atraumatic. NECK: Supple. HEART: Showed normal first and second heart sounds. No gallop or murmur. CHEST: Showed central trachea, equal bilateral expansion, air entry. Surprisingly, the patient has no crepitation or rhonchi. ABDOMEN: Distended, soft, nontender. NEUROLOGIC: She is grossly intact. LABORATORY DATA: Her intake over the last 24 hours was 1320, no output was recorded. As of yesterday, her white cell count was 7000, hemoglobin 14, hematocrit 41, MCV 89, and platelet count 229,000. Her blood sugar seems to be reasonably controlled. Her chemistry showed a serum sodium of 136, potassium 3.7, chloride 101, bicarbonate 24, anion gap of 11, BUN 13, creatinine 0.9, estimated GFR was 73 mL per minute. Her glucose was 132 and calcium was 8.2. ASSESSMENT: 1. COVID-19 infection. 2. Bronchial asthma exacerbation. 3. Type 2 diabetes mellitus. PLAN: Continue with IV antibiotic in the form of doxycycline 100 mg twice a day. Continue with steroids. Continue with dexamethasone and remdesivir. Continue to monitor her blood sugar and adjust insulin as needed. Continue with nebulized albuterol and Atrovent. I will add Mucinex and obviously once she improves, she can obviously be discharged home, although I think she is still not ready for that yet. KARMA HOYT MD DR: ANJEL/clint JOB#: [id number] / [id number]
[2020-11-23] MEDS: MONTELUKAST 10 MG TABLET. PO SCH (20:13)
[2020-11-24 01:06] VITALS: BP 112/62
[2020-11-24 05:29] VITALS: BP 104/62
[2020-11-24] MEDS: methylPREDNISolone SOD SUCC PF 40 MG/ML VIAL. IV SCH (05:36)
[2020-11-24 07:02] LABS: ALBUMIN 2.9 g/dL (3.4-5.0); DIRECT BILIRUBIN 0.1 mg/dL (0.0-0.2); TOTAL BILIRUBIN 0.2 mg/dL (0.2-1.0)
[2020-11-24] MEDS: INSULIN LISPRO 300 UNITS/3 ML VIAL. SQ SCH (08:00)
[2020-11-24] MEDS: IPRATROPIUM/ALBUTEROL 20/100mcg/INH INHALER. INH SCH (08:00)
[2020-11-24] MEDS: BUDESONIDE 0.5 MG/2 ML NEBU NEB SCH (08:00)
[2020-11-24] MEDS: PANTOPRAZOLE 40 MG TABLET. PO SCH (08:24)
[2020-11-24] MEDS: LACTOBACILLUS RHAMNOSUS GG 1 CAPSULE. PO SCH (08:24)
[2020-11-24] MEDS: REMDESIVIR 100mg in NORMAL SALINE 250ML X 4 DAYS IV SCH (08:25)
[2020-11-24] MEDS: ENOXAPARIN 40 MG/0.4 ML SYRINGE. SQ SCH (08:25)
[2020-11-24] MEDS: DOXYCYCLINE HYCLATE 100 MG TABLET PO SCH (08:25)
[2020-11-24] MEDS: HYDROcodone/APAP 5/325MG 1 TAB TABLET PO PRN (08:30)
--- NOTE | 2020-11-24 10:24 | NUR ---
PATIENT IS DISCHARGED HOME, DISCHARGE INSTRUCTION REVIEWED, PATIENT VERBALIZED UNDERSTANDING. PATIENT LEFT ROOM 122 VIA W/C ACCOMP BY STAFF MEMBER. PATIENT IS TAKEN HOME BY VIA PERSONAL VEHICLE.
--- NOTE | 2020-11-24 17:26 | DS ---
DATE OF DISCHARGE: 11/24/2020 ATTENDING PHYSICIAN: Dr. Avalos. FINAL DISCHARGE DIAGNOSES: 1. Acute exacerbation of asthma. 2. COVID-19 positive bronchitis. 3. Type 2 diabetes. 4. Acute on chronic respiratory failure, improved. 5. Bronchial asthma exacerbation. HISTORY AND PHYSICAL: This is a 30-year-old female. 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 [id number] was diagnosed with COVID. She was admitted with exacerbation of asthma. She also tested positive for COVID-19. PHYSICAL EXAMINATION: Please see the dictated note. PERTINENT LABORATORY AND X-RAY STUDIES: Initial chest x-ray was clear without any acute infiltrates. Serology was indeed positive for coronavirus and negative for influenza A and B. Hemoglobin 14.2 g/dL, white count 7500. Chemistry panel on the database within normal range. Nonfasting blood sugar 135. Prior to discharge, it elevated. Sugars due to steroids were treated accordingly with insulin as well as her metformin. COURSE IN THE HOSPITAL: The patient was admitted. She was here for 6 days. She did receive a 4-day course of remdesivir with improvement. Steroids and metered dose inhaler were continued. She did well. By the sixth hospital day, she had completed her remdesivir course. Her vital signs were quite stable. Her room air saturations were 97%, blood pressure 112/62, pulse 66 and regular, temperature 97.8 degrees Fahrenheit. Her lungs were clear with good air movement. At this time, we recommended 5 more days of prednisone 20 mg p.o. daily along with doxycycline 100 mg b.i.d. for 5 more days and finally Tussionex 5 mL q.12 hours p.r.n. cough. In addition, she will continue her albuterol metered dose inhaler 2 puffs 4 times a day, Zyrtec, Flonase nasal spray, metformin 500 b.i.d. and once again, prednisone 20 mg p.o. daily for 5 more days then stop. She will follow up with her primary care physician. I recommend that she quarantine for another 10 days. She was discharged then from our hospital in stable condition with explicit instructions and followup care. CATHERINE ARELLANO MD DR: YASMIN/clint JOB#: [id number] / [id number] JUSTUS Arreola MD
== END 2020-11-24 10:20 | disposition home or self-care (01) | DRG 177 ==
LOC: ER 23:17 → 1 SOUTH 11-20 01:39
PROVIDERS: ADMIT Internal Medicine; ATTEND Internal Medicine
PROC: XW033E5 Introduction of Remdesivir Anti-infective into Peripheral Vein, Percutaneous Approach, New Technology Group 5 (ICD-10-PCS; principal; 2020-11-24)
DX: U07.1 COVID-19 (principal); J12.89 Other viral pneumonia; J96.20 Acute and chronic respiratory failure, unspecified whether with hypoxia or hypercapnia; J45.901 Unspecified asthma with (acute) exacerbation; E11.9 Type 2 diabetes mellitus without complications; Z88.1 Allergy status to other antibiotic agents; Z88.0 Allergy status to penicillin; Z79.899 Other long term (current) drug therapy
CPT/HCPCS: 36415; 71045; 80048; 80053; 80076; 81025; 82947; 83605; 85025; 85027; 85379; 87040; 87804; 93005; 94640; J1650; J1815; J2405; J2920; J3475; J7050; U0003; J7030; J7613

== ENCOUNTER 2021-03-03 15:02 | Emergency (ER) | payer SELFPAY ==
[~2021-03-03] VITALS: Ht 149.9 cm; Wt 97.3 kg
[~2021-03-03 15:02] MED LIST changes: +ALBU2.5V8 IH; +BUDE10.22 IH; +METF500T16 PO
[2021-03-03] MEDS ORDERED: IBUPROFEN 600 MG TABLET. PO ONE (15:15)
--- NOTE | 2021-03-03 15:29 | PHYS DOC ---
Past History Past Medical History: Asthma Additional Past Medical Histor: pre-diabetes (NAFISA HOPSON APRN) Past Surgical History: No Surgical History (NAFISA HOPSON APRN) Alcohol Use: None (NAFISA HOPSON APRN) General Adult EDM: Chief Complaint: TOE PROBLEM HPI: HPI: Patient is a 30 year old female who presents with was walking to her house today when her left pinky toe jammed into the corner of a wall. She states that it is hard to wiggle her pinky toe and it feels numb. She is ambulatory with a steady gait. Patient rates her throbbing pain 9 out of 10 that will radiate up into the lateral side of the foot.. She did not take any medication prior to coming. (NAFISA HOPSON APRN) Review of Systems: Review of Systems: Constitutional: Denies fever or chills Eyes: Denies change in visual acuity HENT: Denies nasal congestion or sore throat Respiratory: Denies cough or shortness of breath Cardiovascular: Denies chest pain or edema GI: Denies abdominal pain, nausea, vomiting, bloody stools or diarrhea : Denies dysuria Musculoskeletal: Denies back pain. + Left foot fifth toe joint pain Integument: Denies rash Neurologic: Denies headache, focal weakness or sensory changes. + Numbness to left foot fifth toe Endocrine: Denies polyuria or polydipsia Lymphatic: Denies swollen glands Psychiatric: Denies depression or anxiety (NAFISA HOPSNO APRN) Current Medications: Current Meds: Current Medications Medications (Trade) Dose Ordered Sig/Jane Start Time Stop Time Status Last Admin Dose Admin Ibuprofen (Motrin) 600 mg 1X ONCE 03/03/21 15:15 03/03/21 15:19 DC (NAFIAS HOPSON SCALEMAKER) Allergies: Allergies: Allergies Coded Allergies Type Severity Reaction Last Updated Verified Penicillins Allergy Severe anaphylactic 09/07/20 Yes nut - unspecified Allergy Severe Anaphylaxis 11/20/20 Yes Milk Containing Products Allergy Intermediate Nausea and Vomiting 11/20/20 Yes ciprofloxacin Allergy Intermediate myalgias, liver labs elevated 09/07/20 Yes milk Allergy Unknown 11/23/20 Yes (NAFISA HOPSON APRN) Physical Exam: PE: Constitutional: Well developed, well nourished, no acute distress, non-toxic appearance. [] HENT: Normocephalic, atraumatic, bilateral external ears normal, oropharynx moist, no oral exudates, nose normal. [] Eyes: PERRLA, EOMI, conjunctiva normal, no discharge. [] Neck: Normal range of motion, no tenderness, supple, no stridor. [] Cardiovascular:Heart rate regular rhythm, no murmur [] Lungs & Thorax: Bilateral breath sounds clear to auscultation [] Abdomen: Bowel sounds normal, soft, no tenderness, no masses, no pulsatile masses. [] Skin: Warm, dry, no erythema, no rash. [] Back: No tenderness, no CVA tenderness. [] Extremities: Left fifth toe tenderness, no cyanosis, no clubbing, ROM not intact, no edema. [] Neurologic: Alert and oriented X 3, normal motor function, normal sensory function, no focal deficits noted. [] Psychologic: Affect normal, judgement normal, mood normal. [] (NAFISA HOPSON APRN) Current Patient Data: Vital Signs: Vital Signs Date Time Temp Pulse Resp B/P (MAP) Pulse Ox O2 Delivery O2 Flow Rate FiO2 03/03/21 15:15 98.4 98 18 134/84 (101) 99 Room Air (NAFISA HOPSON APRN) EKG: EKG: [] (NAFISA HOPSON APRN) Radiology/Procedures: Radiology/Procedures: [] Impressions: [place] [address] IMAGING REPORT Signed PATIENT: CL BIRCH PACCOUNT: [id number] : 1990 LOCATION: ER AGE: 30 SEX: F EXAM STATUS: REG ER ORD. PHYSICIAN: NAFISA HOPSON APRN REASON: JAMMED 5TH LEFT TOE ON CORNER OF WALL PROCEDURE: FOOT LEFT 3V XR FOOT_LEFT 3 VIEWS History: Reason: JAMMED 5TH LEFT TOE ON CORNER OF WALL / Spl. Instructions: / History: Technique: 3 views left foot Comparison: None. Findings: Normal alignment. No fracture. Soft tissues unremarkable. Punctate calcaneal spur. Impression: 1. No acute osseous abnormality. Electronically signed by: Beto Machado DO (03/03/2021 3:34 PM) [id number] DICTATED AND SIGNED BY: BETO MACHADO DO DATE: 03/03/21 1531 CC: NAFISA HOPSON APRN; JUSTUS GUERRERO MD ~MTH0 0 (NAFISA HOPSON APRN) Heart Score: C/O Chest Pain: No Risk Factors: Risk Factors: DM, Current or recent (<one month) smoker, HTN, HLP, family history of CAD, obesity. Risk Scores: Score 0 - 3: 2.5% MACE over next 6 weeks - Discharge Home Score 4 - 6: 20.3% MACE over next 6 weeks - Admit for Clinical Observation Score 7 - 10: 72.7% MACE over next 6 weeks - Early Invasive Strategies (NAFISA HOPSON APRN) Course & Med Decision Making: Course & Med Decision Making Pertinent Labs and Imaging studies reviewed. (See chart for details) See HPI. Alert and oriented x4. Ambulatory steady gait. Speaks in full clear sentences. Pedal pulse strong present. Cap refill less than 2 seconds. There is no deformity or swelling to the foot or the left toe. There is no redness. The fourth and fifth toe are anderson taped together. [] (NAFISA HOPSON APRN) Dragon Disclaimer: Dragon Disclaimer: This electronic medical record was generated, in whole or in part, using a voice recognition dictation system. (NAFISA HOPSON APRN) Departure Departure: Impression: Primary Impression: Toe pain, left Disposition: HOME / SELF CARE / HOMELESS Condition: STABLE Referrals: JUSTUS GUERRERO MD (PCP) Patient Instructions: Anderson Taping of Toes, Crush Injury, Fingers or Toes, Foot Sprain, Toe Injuries and Amputations Additional Instructions: Follow-up with primary care physician if needed. Use ice and elevation to help with pain. Take ibuprofen to help with your pain. Attending Signature Attending Signature I have reviewed the PA/COLORER's note and plan of care. I was available for consultation as needed during the patient's visit in the emergency department. I agree with the clinical impression, plan, and disposition. (MARYANNE MORRISON DO) NAFISA HOPSON APRN Mar 03, 2021 15:29 MARYANNE MORRISON DO Mar 04, 2021 00:36
--- NOTE | 2021-03-03 15:36 | RAD ---
XR FOOT_LEFT 3 VIEWS History: Reason: JAMMED 5TH LEFT TOE ON CORNER OF WALL / Spl. Instructions: / History: Technique: 3 views left foot Comparison: None. Findings: Normal alignment. No fracture. Soft tissues unremarkable. Punctate calcaneal spur. Impression: 1. No acute osseous abnormality. Electronically signed by: Beto Machado DO (03/03/2021 3:34 PM) [id number]
== END 2021-03-03 16:04 | disposition home or self-care (01) ==
LOC: ER 15:02
DX: M79.675 Pain in left toe(s) (principal); R20.0 Anesthesia of skin; J45.909 Unspecified asthma, uncomplicated; Z88.0 Allergy status to penicillin; Z88.1 Allergy status to other antibiotic agents; Z91.018 Allergy to other foods; Z91.011 Allergy to milk products
CPT/HCPCS: 73630; 99283

== ENCOUNTER 2021-03-11 15:36 | Emergency (ER) | payer SELFPAY ==
[~2021-03-11] VITALS: Ht 149.9 cm; Wt 100.1 kg
[2021-03-11 15:57] VITALS: BP 138/87
[2021-03-11] MEDS ORDERED: IPRATRPIUM/ALBUTEROL 0.5/2.5MG 3 ML NEBU. NEB ONE (17:15)
[2021-03-11] MEDS ORDERED: predniSONE 20 MG TABLET PO ONE (17:15)
[2021-03-11] MEDS ORDERED: METOCLOPRAMIDE HCL 10 MG/2 ML VIAL. IVP ONE (17:15)
[2021-03-11] MEDS ORDERED: diphenhydrAMINE 50 MG/ML VIAL IVP ONE (17:15)
[2021-03-11] MEDS ORDERED: KETOROLAC 30 MG/ML VIAL. IVP ONE (17:15)
[2021-03-11] MEDS ORDERED: IV NORMAL SALINE 1,000ML 1,000 ML IV ONE (17:15)
--- NOTE | 2021-03-11 17:16 | PHYS DOC ---
Past History Past Medical History: Asthma Additional Past Medical Histor: pre-diabetes Past Surgical History: No Surgical History Alcohol Use: None Adult General Chief Complaint Chief Complaint: HEADACHE HPI HPI Patient is a 30-year-old female presents to the emergency department complaining of headache, chest pain, shortness of breath ever since receiving her first dose of the Covid virus vaccination 1 week ago. Patient states she has a history of migraines however states this is the worst headache she ever has experienced rating it a 10/10 on a 1-10 pain scale, states it does not feel like a migraine that she is experienced in the past. Patient states she is unusually short of breath, has a history of asthma, feels like this is not an asthma attack as her MDI inhalers at home have always taken care of her shortness of breath in the past, patient states that her inhalers have not been working. Patient reports her last MDI use was 3 days ago on Sunday. Patient states her chest hurts all over with deep inspiration and expiration. Patient states she has a dry cough. Patient denies any abdominal pain, nausea, vomiting, diarrhea, blood in her stools. Patient denies any chest congestion or nasal congestion. Patient denies any sore throat or ear pains. Patient states her eyes feel irritated. Patient reports an allergy to penicillin and ciprofloxacin. Patient states her last menstrual cycle was over a year ago when she had her Implanon control placed, patient states she takes Metformin, Symbicort twice daily, albuterol MDI as needed. Patient denies fevers at home. Patient denies any other physical complaints or physical concerns. Patient states no one else living in her home is having the same symptoms that she. Review of Systems Review of Systems 14 body systems of review of systems have been reviewed. See HPI for pertinent positives and negative responses, otherwise all other systems are negative, nonpertinent or noncontributory. Current Medications Current Medications Current Medications Medications (Trade) Dose Ordered Sig/Jane Start Time Stop Time Status Last Admin Dose Admin Metoclopramide HCl (Reglan Vial) 10 mg 1X ONCE 03/11/21 17:15 03/11/21 17:16 UNV Sodium Chloride 1,000 ml @ 1,000 mls/hr 1X ONCE 03/11/21 17:15 03/11/21 18:14 UNV Allergies Allergies Allergies Coded Allergies Type Severity Reaction Last Updated Verified Penicillins Allergy Severe anaphylactic 03/11/21 Yes nut - unspecified Allergy Severe Anaphylaxis 03/11/21 Yes Milk Containing Products Allergy Intermediate Nausea and Vomiting 11/20/20 Yes ciprofloxacin Allergy Intermediate myalgias, liver labs elevated 03/11/21 Yes milk Allergy Unknown 11/23/20 Yes Physical Exam Physical Exam Constitutional: Well developed, well nourished, no acute distress, patient toxic appearance, erythematous conjunctiva. Patient coughing during physical e xamination. HENT: Normocephalic, atraumatic, bilateral external ears normal, oropharynx moist, no oral exudates, nose normal. Oropharynx moist, pink, no deep tissue infectious process appreciated, no laryngeal edema, no peritonsillar edema, no cobblestoning appreciated, no uvular edema. There is no lymphadenopathy of the head or neck. Bilateral TMs within normal limits, there is no drainage from bilateral external auditory canals. No drainage from nasal turbinates. Nasal turbinates nonerythematous, within normal limits. Eyes: PERRLA, EOMI, no discharge from eyes, bilateral conjunctiva erythematous. Patient denies vision changes. Neck: Normal range of motion, no tenderness, supple, no stridor. No midline C- spine pain, no nuchal rigidity, no meningismus signs. Cardiovascular:Heart rate regular rhythm, no murmur, heart sounds S1-S2 to auscultation. Lungs & Thorax: Bilateral breath sounds clear to auscultation, lung sounds diminished in bases otherwise no adventitious lung sounds appreciated. Pain with palpation along anterior thorax. Abdomen: Bowel sounds normal, soft, no tenderness, no masses, no pulsatile masses. Skin: Warm, dry, no erythema, no rash. Back: No tenderness, no CVA tenderness. Extremities: No tenderness, no cyanosis, no clubbing, ROM intact, no edema. Distal cap refill less than 2 seconds. Neurologic: Alert and oriented X 3, normal motor function, normal sensory function, no focal deficits noted. Psychologic: Affect normal, judgement normal, mood normal. Current Patient Data Vital Signs Vital Signs Date Time Temp Pulse Resp B/P (MAP) Pulse Ox O2 Delivery O2 Flow Rate FiO2 03/11/21 15:57 97.9 91 18 138/87 (104) 97 Room Air EKG EKG EKG performed at 1727, shows heart rate of 70 bpm, normal sinus rhythm without ectopy, WA interval 0.134, QTc interval 0.421, no acute STEMI, no ACS, no acute ischemia appreciated, EKG interpreted by ED attending physician Dr. Toledo. Radiology/Procedures Radiology/Procedures [] Heart Score C/O Chest Pain: N/A HEART Score for Chest Pain: HEART Score for Chest Pain Response (Comments) Value History Slighlty/Non-Suspicious 0 ECG Normal 0 Age < 45 0 Risk Factors 1 or 2 Risk Factors 1 Troponin < Normal Limit 0 Total 1 Risk Factors: Risk Factors: DM, Current or recent (<one month) smoker, HTN, HLP, family history of CAD, obesity. Risk Scores: Risk Factors: DM, Current or recent (<one month) smoker, HTN, HLP, family history of CAD, obesity. Course & Med Decision Making Course & Med Decision Making Pertinent Labs and Imaging studies reviewed. (See chart for details) 30-year-old female, vital signs reviewed, presents emergency department complaining of headache, chest pain, shortness of breath after receiving a COVID-19 virus immunization 1 week ago. Patient's physical examination consistent with viral syndrome, however related to patient's verbal complaint of the worst headache she has ever had and chest pains, cardiopulmonary work-up was initiated. A D-dimer was ordered to rule out likelihood of pulmonary embolism. Will order CT head after D-dimer complete. Will order albuterol and Atrovent nebulized treatment, give 60 mg p.o. prednisone, headache cocktail to include 10 mg IV Reglan, 25 mg IV Benadryl, 30 mg IV Toradol, 1 L normal saline. D-dimer was not concerning for PE or DVT, reevaluation of the patient found the patient in no respiratory distress, patient states her chest pain has resolved, states her headache has resolved, states she is no longer short of breath. Patient states she feels 100% better and wishes to go home at this time. Discussed with patient diagnosis was likely a viral syndrome with acute asthma exacerbation. Will give prescription for 20 mg p.o. prednisone to take over the next 5 days. Patient gave verbal understanding of discharge home instructions, follow-up with primary care on Sunday, return to ER precautions and concerns, patient was discharged home without incident Dragon Disclaimer Dragon Disclaimer This electronic medical record was generated, in whole or in part, using a voice recognition dictation system. Departure Departure: Impression: Primary Impression: Viral syndrome Additional Impressions: Headache Asthma exacerbation Disposition: HOME / SELF CARE / HOMELESS Condition: GOOD Referrals: JUSTUS HANNON MD (PCP) Additional Instructions: Please take the 20 mg prednisone each day for the next 5 days. Please follow-up with your primary care Dr. Hannon on Sunday for reevaluation of ongoing symptoms. Please return to the emergency department for worsening symptoms or other concerns. Your evaluated today in the emergency department for your headache, and chest pain with shortness of breath. A cardiorespiratory work-up was initiated, your EKG and x-ray imaging are unremarkable, I did a CT of your head to rule out any lesions or tumors or strokes or other neurological processes that may cause your severe headache. Your CT head was read as negative by our house radiologist. Your headache has resolved with the medications I given you today. As we discussed this was most likely a viral syndrome with a mild exacerbation of your asthma. EMERGENCY DEPARTMENT GENERAL DISCHARGE INSTRUCTIONS Thank you for coming to [facility] (ED) today and trusting us with you care. We trust that you had a positivie experience in our Emergency Department. If you wish to speak to the department management, you may call the director at [phone]. YOUR FOLLOW UP INSTRUCTIONS ARE FOLLOWS: 1. Do you have a private Doctor? If you do not have a private doctor, please ask for a resource list of physicians or clinics that may be able to assist you with follow up care. 2. The Emergency Physician has interpreted your x-rays. The X-Ray specialist will also review them. If there is a change in the findings, you will be notified in 48 hours when at all possible. 3. A lab test or culture has been done, your results will be reviewed and you will be notified if you need a change in treatment. ADDITIONAL INSTRUCTIONS AND INFORMATION: 1. Your care today has been supervised by a physician who is specially trained in emergency care. Many problems require more than one evaluation for a complete diagnosis and treatment. We recommend that you schedule your follow up appointment as recommended to ensure complete treatment of you illness or injury. If you are unable to obtain follow up care and continue to have a problem, or if your condition worsens, we recommend that you return to the ED. 2. We are not able to safely determine your condition over the phone nor are we able to give sound medical advice over the phone. For these safety reasons, if you call for medical advice we will ask you to come to the ED for further evaluation. 3. If you have any questions regarding these discharge instructions please call the ED at [phone]. SAFETY INFORMATION: In the interest of safety, wellness, and injury prevention; we encourage you to wear your sealbelt, if you smoke; quite smoking, and we encourage family to use a protective helmet for bicycling and other sporting events that present an increased risk for head injury. IF YOUR SYMPTOMS WORSEN OR NEW SYMPTOMS DEVELOP, OR YOU HAVE CONCERNS ABOUT YOUR CONDITION; OR IF YOUR CONDITION WORSENS WHILE YOU ARE WAITING FOR YOUR FOLLOW UP APPOINTMENT; EITHER CONTACT YOUR PRIMARY CARE DOCTOR, THE PHYSICIAN WHOSE NAME AND NUMBER YOU WERE GIVEN, OR RETURN TO THE ED IMMEDIATELY. Scripts Prednisone (PREDNISONE) 20 Mg Tablet 1 TAB PO DAILY for allergies for 5 Days, #5 TAB 0 Refills Prov: MARYANNE CUADRA APRN 03/11/21 Problem Qualifiers Additional Impressions: Headache Headache type: unspecified Headache chronicity pattern: acute headache Intractability: not intractable Qualified Codes: R51.9 - Headache, unspecified Asthma exacerbation Asthma severity: mild Asthma persistence: unspecified Qualified Codes: J45.901 - Unspecified asthma with (acute) exacerbation MARYANNE CUADRA APRN Mar 11, 2021 17:16
[2021-03-11 17:18] LABS: BASO % 0 % (0-3); EOS # 0.1 x10^3/uL (0.0-0.7); EOS % 1 % (0-3); HEMATOCRIT 41.6 % (36.0-47.0); HEMOGLOBIN 14.2 g/dL (12.0-15.5); LYMPH % 34 % (24-48); MEAN CORPUSCULAR HEMOGLOBIN 31 pg (25-35); MEAN CORPUSCULAR HGB CONC 34 g/dL (31-37); MEAN CORPUSCULAR VOLUME 91 fL (79-100); MONO # 0.6 x10^3/uL (0.0-1.1); MONO % 7 % (0-9); NEUT # 5.1 x10^3uL (1.8-7.7); NEUT % 57 % (31-73); PLATELET COUNT 313 x10^3/uL (140-400); RED BLOOD COUNT 4.56 x10^6/uL (3.50-5.40); RED CELL DISTRIBUTION WIDTH 12.7 % (11.5-14.5); WHITE BLOOD COUNT 8.9 x10^3/uL (4.0-11.0)
[2021-03-11 17:19] LABS: CALCIUM 8.7 mg/dL (8.5-10.1); CREATININE 0.8 mg/dL (0.6-1.0); GFR 84.2; POTASSIUM 3.9 mmol/L (3.5-5.1)
[2021-03-11 17:23] LABS: U PREG PATIENT NEGATIVE (NEG)
[2021-03-11 17:25] LABS: ALBUMIN 3.6 g/dL (3.4-5.0); ALBUMIN/GLOBULIN RATIO 0.9 (1.0-1.7); TOTAL BILIRUBIN 0.2 mg/dL (0.2-1.0); TOTAL PROTEIN 7.7 g/dL (6.4-8.2)
[2021-03-11 17:33] LABS: BILIRUBIN,URINE NEG (NEG); CLARITY,URINE HAZY; COLOR,URINE YELLOW; GLUCOSE,URINE NEG (NEG); NITRITE,URINE NEG (NEG); SQUAMOUS EPITHELIAL CELL,UR MANY /LPF; UROBILINOGEN,URINE 0.2 mg/dL (0.2 mg/dL)
[2021-03-11 17:34] LABS: BACTERIA,URINE FEW /HPF (0-FEW)
--- NOTE | 2021-03-11 17:35 | EKG ---
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
--- NOTE | 2021-03-11 18:47 | RAD ---
EXAM: CT Head without IV contrast CLINICAL HISTORY: SEVERE HEADACHE FOR 1 WEEK COMPARISON: None. TECHNIQUE: Routine CT of the head without contrast. PQRS compliance statement - One or more of the following individualized dose reduction techniques wer e utilized for this study: 1. Automated exposure control 2. Adjustment of the mA and/or kV according to patient size 3. Use of iterative reconstruction technique FINDINGS: There is no evidence of hemorrhage, mass or extra-axial fluid collection. Guy-white differentiation is maintained with no evidence of edema. There is no mass effect or shift of the intracranial structures. The ventricles, basilar cisterns and cortical sulci are normal in size and configuration for the jb ents stated age. The cerebellum and brainstem are unremarkable. The calvarium demonstrates no evidence of fracture or focal lesion. There is normal aeration of the visualized paranasal sinuses and mastoid air cells. The visualized portions of the orbits are normal. IMPRESSION: No evidence for acute intracranial process. Electronically signed by: Jimmy Abrams MD (03/11/2021 6:44 PM) [facility]
--- NOTE | 2021-03-11 18:47 | RAD ---
PA and lateral chest. HISTORY: Short of breath PA and lateral views were taken of the chest. Lungs are clear. Heart is normal in size. There is no p leural effusion. IMPRESSION: 1. No acute chest disease. Electronically signed by: Lv Gonzalez MD (03/11/2021 6:45 PM) [facility]
[2021-03-11] MEDS ORDERED: PRED20TA PO (19:55)
== END 2021-03-11 20:10 | disposition home or self-care (01) ==
LOC: ER 15:36
DX: B34.9 Viral infection, unspecified (principal); R51.9 Headache, unspecified; J45.901 Unspecified asthma with (acute) exacerbation; Z88.0 Allergy status to penicillin; Z88.1 Allergy status to other antibiotic agents; Z91.011 Allergy to milk products; Z91.018 Allergy to other foods
CPT/HCPCS: 36415; 70450; 71046; 80053; 81001; 81025; 83605; 84484; 85025; 85379; 87086; 93005; 94640; 96361; 96374; 96375; 99285; J1200; J1885; J2765; J7030; J7512

== ENCOUNTER 2021-04-12 16:03 | Emergency (ER) | payer SELFPAY ==
[~2021-04-12] VITALS: Ht 149.9 cm; Wt 101.5 kg
[2021-04-12 16:03] VITALS: BP 129/69
[2021-04-12] MEDS ORDERED: HYDROcodone/APAP 5/325MG 1 TAB TABLET PO ONE (16:30)
[2021-04-12] MEDS ORDERED: KETOROLAC 60 MG/2 ML VIAL. IM ONE (16:30)
--- NOTE | 2021-04-12 16:31 | PHYS DOC ---
Past History Past Medical History: Asthma Additional Past Medical Histor: pre-diabetes (MARYANNE CUADRA APRN) Past Surgical History: No Surgical History (MARYANNE CUADRA APRN) Alcohol Use: None (MARYANNE CUADRA APRN) Adult General Chief Complaint Chief Complaint: ANKLE PROBLEM HPI HPI Patient is a 31-year-old female presents emergency department stating this past Sunday she was kicked in the inner aspect of her right ankle by her 2-year-old son who was throwing a temper tantrum. Patient states she has been taking [id number] Advil with only minimal relief stating earlier today her pain was a 10/10 pain on a 1-10 pain scale and now it is currently an 8/10 pain after taking her Advil tablets. Patient states she originally injured her right ankle from a slip and fall on the ice in September of 2019, was treated for sprained ankle, reinjured her ankle in a twisting motion in September 2020, was treated again for a sprained ankle, patient states her ankle feels the same as those to previous ankle injuries. Patient denies any other physical complaints or physical concerns. Patient states she is allergic to penicillin, Cipro, and Flagyl. Patient reports taking Metformin daily and an albuterol MDI as needed. Patient reports her last menstrual cycle was a year ago since she had her Imp lanon control placed, reports her primary care physician is Dr. Guerrero. (MARYANNE CUADRA SAFETY SITTER) Review of Systems Review of Systems 14 body systems of review of systems have been reviewed. See HPI for pertinent positives and negative responses, otherwise all other systems are negative, nonpertinent or noncontributory. (MARYANNE CUADRA SAFETY SITTER) Allergies Allergies Allergies Coded Allergies Type Severity Reaction Last Updated Verified Penicillins Allergy Severe anaphylactic 03/11/21 Yes nut - unspecified Allergy Severe Anaphylaxis 03/11/21 Yes Milk Containing Products Allergy Intermediate Nausea and Vomiting 11/20/20 Yes ciprofloxacin Allergy Intermediate myalgias, liver labs elevated 03/11/21 Yes metronidazole Allergy Unknown 04/12/21 Yes milk Allergy Unknown 11/23/20 Yes (MARYANNE CUADRA APRN) Physical Exam Physical Exam Constitutional: Well developed, well nourished, no acute distress, non-toxic appearance. 31-year-old female in no apparent distress. HENT: Normocephalic, atraumatic. Eyes: conjunctiva normal, no discharge. Neck: Normal range of motion. Cardiovascular: No cyanosis appreciated, distal cap refill less than 2 seconds Lungs & Thorax: Patient in no respiratory distress, no auditory adventitious lung sounds appreciated. Skin: Warm, dry, no erythema, no rash. Extremities: No tenderness, no cyanosis, no clubbing, ROM intact, no edema. Except for right ankle, pain to palpation lateral malleoli are surfaces, no bony crepitus appreciated, no swelling appreciated, pain with passive range of tresa on, distal cap refills less than 2 seconds, 2+ dorsalis pedis/posterior tibial pulse, no erythema or bruising appreciated. Neurologic: Alert and oriented X 3, normal motor function, normal sensory function, no focal deficits noted. Psychologic: Affect normal, judgement normal, mood normal. (MARYANNE CUADRA APRN) EKG EKG [] (MARYANNE CUADRA APRN) Radiology/Procedures Radiology/Procedures PATIENT: CL BIRCH PACCOUNT: [id number] : 1990 LOCATION: ER AGE: 31 SEX: F EXAM STATUS: REG ER ORD. PHYSICIAN: MARYANNE CUADRA APRN REASON: BLUNT TRAUMA MEDIAL ASPECT ANKLE PROCEDURE: ANKLE RIGHT 3V EXAM: Right ankle, 3 views. HISTORY: Blunt trauma. COMPARISON: None. FINDINGS: 3 views of the right ankle are obtained. There is no acute fracture, dislocation or subluxation. The ankle mortise is intact. There is no osteochondral lesion. There is a tiny plantar spur. IMPRESSION: No acute osseous finding. Electronically signed by: Mar Ratliff MD (04/12/2021 4:35 PM) [id number] DICTATED AND SIGNED BY: MAR RATLIFF MD DATE: 04/12/21 1634 CC: MARYANNE CUADRA APRN; JUSTUS GUERRERO MD ~MTH0 0 (MARYANNE CUADRA APRN) Heart Score C/O Chest Pain: No Risk Factors: Risk Factors: DM, Current or recent (<one month) smoker, HTN, HLP, family history of CAD, obesity. Risk Scores: Risk Factors: DM, Current or recent (<one month) smoker, HTN, HLP, family history of CAD, obesity. (MARYANNE CUADRA APRN) Course & Med Decision Making Course & Med Decision Making Pertinent Labs and Imaging studies reviewed. (See chart for details) 31-year-old female, vital signs reviewed, presents emergency department reporting blunt trauma to her right ankle from last Sunday, physical examination unremarkable however related to patient's complaint will order x-ray imaging of right ankle, give 60 mg IM Toradol, 1 tablet p.o. [facility]. Ice pack and elevation pending x-ray results. Imaging negative for acute process, discussed findings with patient, diagnosis of ankle contusion, recommended ice packs and ongoing use of [id number] NSAIDs and/or Tylenol for pain or discomfort, follow-up with PCP soon for reevaluation and ongoing pain management, return ER precautions or concerns. Patient reports her pain is doing much better since receiving pain medication in the ER. Patient gave verbal understanding of discharge home instructions, PCP follow-up, RT ER, patient had no further questions or concerns was discharged home without incident. (MARYANNE CUADRA APRN) Dragon Disclaimer Dragon Disclaimer This electronic medical record was generated, in whole or in part, using a voice recognition dictation system. (MARYANNE CUADRA APRN) Departure Departure: Impression: Primary Impression: Contusion of right ankle Disposition: 01 HOME / SELF CARE / HOMELESS Condition: GOOD Referrals: JUSTUS GUERRERO MD (PCP) Patient Instructions: Contusion Additional Instructions: You are seen in the emergency department today for right ankle pain after your son kicked it 2 days last Sunday. An x-ray was performed there were no concerning findings. As we discussed, please continue to use ice therapy, [id number] Tylenol and or Motrin, follow-up with Dr. Guerrero soon for ongoing pain management. Please return to the emergency department for worsening symptoms or other concerns. You have been tested for or diagnosed with COVID-19. It is an infection caused by a new type of coronavirus. COVID-19 will cause cold-like or mild flu symptoms in most. It can cause more severe symptoms like problems breathing in some. There is no treatment for COVID-19. The body will clear the infection over time. Self-care will help to ease discomfort. Steps to Take: Self-Care Rest as needed. Healthy habits may help you feel better. Steps include: Choose healthy foods including fruits and vegetables. Drink water throughout the day. Get plenty of sleep each night. If you smoke, try to quit. It may ease breathing. Avoid alcohol. Keep Others Healthy The virus can spread to others. Droplets are released every time you sneeze or cough. The droplets can get into the mouth, nose, or eyes of people near you and lead to infection. To lower the chances of spreading COVID-19 to others: Stay at home until your doctor has said it is safe to leave. If you tested positive this will mean staying isolated until both of the following are true: At least 7 days have passed since the start of illness. You are free of fever for at least 72 hours without the use of medicine. During this time: - Avoid public areas, events, or transportation. Do not return to work or school until your doctor has said it is safe to do so. - Call ahead if you need to go to a medical center. Let them know you may have COVID-19. It will help them guide you where to go. They may also ask you to wear a facemask when you come to the office. - If you call for emergency medical services, let them know you may have COVID- 19. While at home: - Try to avoid close contact with others. Stay about 6 feet away. - If possible, spend most of your time in a separate room from others. - Use a face mask if you will be in close contact with others such as sharing a room or vehicle. - Have someone wipe down common surfaces in the home. Use household oil painter ev sharri day on areas like doorknobs, counters, or sinks. - Cough or sneeze into a tissue. Throw the tissue away right after use. If a tissue is not available, cough or sneeze into your elbow. - Wash your hands often. Wash them after sneezing or coughing. Use soap and water and wash for at least 20 seconds. Alcohol based hand glove cleaner can be used if soap and water is not available. - Do not prepare food for others. Avoid sharing personal items like forks, spoons, or toothbrushes. - Avoid close contact with pets while you are sick. There is no evidence of the virus passing to pets. This is a safety step until more is known about this virus. Isolation can be frustrating. Social interaction can help. Keep in touch with friends and family through phone and tech options. You can still interact with others in your home, just keep a safe distance of about 6 feet. Follow-up: Your doctors office will check in with you to see if there are any changes in your health. You may be asked to keep track of symptoms to share with them. They will also let you know when you are clear to be in public again. Problems to Look Out For: Contact your doctor if your recovery is not going as you expect. Get emergency care if you have problems such as: - Trouble breathing - Nonstop chest pain or pressure - Changes in awareness, confusion, or problems waking - Lips or face have bluish color - Worsening of symptoms If you think you have an emergency, call for emergency medical services right away. As taken from [facility] Attending Signature Attending Signature I have reviewed the PA/BOX TRUCK OWNER OPERATOR's note and plan of care. I was available for consultation as needed during the patient's visit in the emergency department. I agree with the clinical impression, plan, and disposition. (MARYANNE MORRISON DO) Problem Qualifiers Primary Impression: Contusion of right ankle Encounter type: initial encounter Qualified Codes: S90.01XA - Contusion of right ankle, initial encounter MARYANNE CUADRA APRN April 12, 2021 16:31 MARYANNE MORRISON DO April 12, 2021 17:39
--- NOTE | 2021-04-12 16:37 | RAD ---
EXAM: Right ankle, 3 views. HISTORY: Blunt trauma. COMPARISON: None. FINDINGS: 3 views of the right ankle are obtained. There is no acute fracture, dislocation or subluxa tion. The ankle mortise is intact. There is no osteochondral lesion. There is a tiny plantar spur. IMPRESSION: No acute osseous finding. Electronically signed by: Mar Ashby MD (04/12/2021 4:35 PM) [id number]
== END 2021-04-12 16:58 | disposition home or self-care (01) ==
LOC: ER 16:03
DX: S90.01XA Contusion of right ankle, initial encounter (principal); J45.909 Unspecified asthma, uncomplicated; Z88.0 Allergy status to penicillin; Z88.1 Allergy status to other antibiotic agents; Z91.011 Allergy to milk products; Z88.8 Allergy status to other drugs, medicaments and biological substances; W00.0XXA Fall on same level due to ice and snow, initial encounter; Y93.89 Activity, other specified; Y92.89 Other specified places as the place of occurrence of the external cause; Y99.8 Other external cause status
CPT/HCPCS: 73610; 96372; 99283; J1885

== ENCOUNTER 2021-06-25 14:36 | Emergency (ER) | payer SELFPAY ==
[~2021-06-25] VITALS: Ht 149.9 cm; Wt 102.1 kg
[2021-06-25 14:58] VITALS: BP 131/72
[2021-06-25] MEDS ORDERED: PRED50TA PO (15:45)
--- NOTE | 2021-06-25 15:46 | PHYS DOC ---
Past History Past Medical History: Asthma, Diabetes Additional Past Medical Histor: pre-diabetes Past Surgical History: No Surgical History Alcohol Use: None General Adult EDM: Chief Complaint: BACK PAIN OR INJURY HPI: HPI: Patient is a 31 year old female who presents with lower back pain for the past 2 weeks. Pain started when she was painting her child's playground. Was sitting on a stool for prolonged periods of time. Pain is constant and worse with movement. It is in the lumbar spine region and worse on the left than the right. Radiates slightly down towards the left hip. She was taking ibuprofen, which initially helped. Over the past few days the pain has only worsened. She has had no fever/chills. No bowel/bladder incontinence. No saddle anesthesia. No numbness or weakness in the legs. No previous back surgeries. No immunosuppressive medications. No trauma. Review of Systems: Review of Systems: Constitutional: Denies fever or chills Eyes: Denies change in visual acuity HENT: Denies nasal congestion or sore throat Respiratory: Denies cough or shortness of breath Cardiovascular: Denies chest pain or edema GI: Denies abdominal pain, nausea, vomiting, bloody stools or diarrhea : Denies dysuria Musculoskeletal: Reports back pain. No joint pain Integument: Denies rash Neurologic: Denies headache, focal weakness or sensory changes Endocrine: Denies polyuria or polydipsia Lymphatic: Denies swollen glands Psychiatric: Denies depression or anxiety Allergies: Allergies: Allergies Coded Allergies Type Severity Reaction Last Updated Verified Penicillins Allergy Severe anaphylactic 03/11/21 Yes nut - unspecified Allergy Severe Anaphylaxis 03/11/21 Yes Milk Containing Products Allergy Intermediate Nausea and Vomiting 11/20/20 Yes ciprofloxacin Allergy Intermediate myalgias, liver labs elevated 03/11/21 Yes metronidazole Allergy Unknown 04/12/21 Yes milk Allergy Unknown 11/23/20 Yes Physical Exam: PE: Constitutional: Sitting very still. Appears slightly uncomfortable. [] HENT: Normocephalic, atraumatic, Neck: Normal range of motion, no tenderness, supple, no stridor. [] Cardiovascular: regular rate. No lower extremity edema. Bilateral feet warm and well-perfused [] Lungs & Thorax: Normal work of breathing and chest excursion. [] Abdomen: Bowel sounds normal, soft, no tenderness, no masses, no pulsatile masses. [] Skin: Warm, dry, no erythema, no rash. [] Back: No tenderness, no CVA tenderness. [] Extremities: No tenderness, no cyanosis, no clubbing, ROM intact, no edema. Specifically 5/5 strength bilaterally in: L1-4: adduction of thighs L3-4: extension at knee L4-5: dorsiflexion of ankle L5: Extension of toes S1-S2: Plantarflexion of ankle Sensation intact in bilateral lower extremities. [] Neurologic: Alert and oriented X 3, normal motor function as noted above. [] Psychologic: Affect normal, judgement normal, mood normal. [] Current Patient Data: Labs: Laboratory Tests Test 06/25/21 15:05 POC Urine HCG, Qualitative hcg negative (Negative) Vital Signs: Vital Signs Date Time Temp Pulse Resp B/P (MAP) Pulse Ox O2 Delivery O2 Flow Rate FiO2 06/25/21 14:58 98.2 96 16 131/72 98 Room Air EKG: EKG: [] Radiology/Procedures: Radiology/Procedures: [] Heart Score: C/O Chest Pain: N/A Risk Factors: Risk Factors: DM, Current or recent (<one month) smoker, HTN, HLP, family history of CAD, obesity. Risk Scores: Score 0 - 3: 2.5% MACE over next 6 weeks - Discharge Home Score 4 - 6: 20.3% MACE over next 6 weeks - Admit for Clinical Observation Score 7 - 10: 72.7% MACE over next 6 weeks - Early Invasive Strategies Course & Med Decision Making: Course & Med Decision Making Pertinent Labs and Imaging studies reviewed. (See chart for details) Patient is a 31-year-old female with 2 weeks of lumbar back pain. History consistent with muscular strain. See HPI, no back pain red flags identified. Neurovascularly intact on examination. No evidence of motor weakness. Do not feel that she requires urgent/emergent neuroimaging/MRI. She has already tried ibuprofen as first-line therapy. Will prescribe a 5-day course of steroid burst. I have advised complementing Tylenol treatment. I was hesitant to prescribe prednisone given her history of bipolar 2 and diabetes. Patient assures me that she has taken several courses in the past without complication. Have asked that she follow-up with her PCP and discuss physical therapy should her symptoms persist. Patient is agreeable with plan. [id number] Prat[address]ha Disclaimer: Pratibha Disclaimer: This electronic medical record was generated, in whole or in part, using a voice recognition dictation system. Departure Departure: Impression: Primary Impression: Lumbar back pain Disposition: HOME / SELF CARE / HOMELESS Condition: STABLE Referrals: JUSTUS GUERRERO MD (PCP) Patient Instructions: Back Pain, Adult Additional Instructions: If you develop weakness in your legs, severe numbness in your legs or in your groin, difficulty with bowel/bladder continence, fever/chills, or other new/concerning symptoms please return to the emergency department for reevaluation. Scripts Prednisone (PREDNISONE) 50 Mg Tablet 50 MG PO DAILY for back pain for 5 Days, #5 TAB Prov: CARLOS HERNANDEZ MD 06/25/21 CARLOS HERNANDEZ MD Jun 25, 2021 15:46
== END 2021-06-25 15:53 | disposition home or self-care (01) ==
LOC: ER 14:36
DX: M54.5 Low back pain (principal); J45.909 Unspecified asthma, uncomplicated; E11.9 Type 2 diabetes mellitus without complications; Z88.0 Allergy status to penicillin; Z88.1 Allergy status to other antibiotic agents; Z88.3 Allergy status to other anti-infective agents
CPT/HCPCS: 81025; 99283